=== PATIENT | female | born 1960 | race American Indian/Alaskan Native ===

== ENCOUNTER 2018-08-02 07:32 | Emergency (ER) | payer BC ==
[2018-08-02 07:39] VITALS: BMI 31.1
[2018-08-02 07:42] VITALS: TEMP 98; O2SAT 96
[2018-08-02] MEDS ORDERED: Albuterol-Ipratrop 3 mg / 0.5 (3 ml) UD IH STA (07:46)
--- NOTE | 2018-08-02 07:57 | ED PDOC ---
Arrival/HPI - General Chief Complaint: Shortness Of Breath Time Seen by Provider: 08/02/18 07:33 Historian: Patient - History of Present Illness Narrative History of Present Illness (Text): 08/02/18 07:49 A 58 year old female, whose past medical history includes asthma, lumbar spine fusion (last fall), chronic back pain, presents to the emergency department with a complaint of 1 year duration cough, congestion, and wheezing. Patient reports her symptoms began following a cervical spine fusion 1 year ago. She states that she has been in and out of her PMD's office and the ER. She has been on Symbicort, Albuterol, and home nebulizer treatments. Patient reports her symptoms have been waxing and waning, and presents to day because she "could not take it anymore". She states that she wants to see a correctional treatment specialist. She states that she was placed on steroids last fall by her PMD, but he is no longer prescribing them to her. She is a non-smoker, non- drug user and occasional drinker. Patient denies fevers, chills, headache, dizziness, chest pain, sputum, abdominal pain, nausea, vomiting, diarrhea, neck pain, urinary/bowel changes, or any other complaint. PMD: Dr. Hall Time/Duration: Other (1 year) Symptom Onset: Sudden Symptom Course: Unchanged Activities at Onset: Rest, Light Context: Home Associated Symptoms (Text): 08/02/18 08:03 Appears in no respiratory distress. No accessory muscle use or retractions. The patient is not tachypnea. She appears to be exasperated with her symptoms lasting so long. Patient reports a normal CT scan of her chest and cervical spine approximately one year ago when her symptoms first began. She has registered under several names and her old records are currently unavailable. Past Medical History - Provider Review Nursing Documentation Reviewed: Yes - Reproductive Menopause: Yes Family/Social History - Physician Review Nursing Documentation Reviewed: Yes Family/Social History: No Known Family HX Smoking Status: Never Smoked Hx Alcohol Use: Yes Frequency of alcohol use: Socially Hx Substance Use: No Allergies/Home Meds Allergies/Adverse Reactions: Allergies No Known Allergies Allergy (Verified 08/02/18 07:41) Review of Systems - Physician Review All systems were reviewed & negative as marked: Yes - Review of Systems Constitutional: absent: Fatigue, Fevers Respiratory: SOB, Cough, Wheezing. absent: Sputum Cardiovascular: absent: Chest Pain, Palpitations, Syncope Gastrointestinal: absent: Abdominal Pain, Stool Changes, Diarrhea, Nausea, Vomiting Genitourinary Female: absent: Urine Output Changes Musculoskeletal: absent: Neck Pain Neurological: absent: Headache, Dizziness, Focal Weakness Physical Exam Vital Signs Reviewed: Yes Vital Signs Temp Pulse Resp BP Pulse Ox 08/02/18 07:32 98 F 108 H 20 139/79 96 Temperature: Afebrile Blood Pressure: Normal Pulse: Tachycardic Respiratory Rate: Normal Appearance: Positive for: Well-Appearing, Non-Toxic, Comfortable Pain Distress: None Mental Status: Positive for: Alert and Oriented X 3 - Systems Exam Head: Present: Atraumatic, Normocephalic Pupils: Present: PERRL Extroacular Muscles: Present: EOMI Conjunctiva: Present: Normal Mouth: Present: Moist Mucous Membranes Neck: Present: Normal Range of Motion Respiratory/Chest: Present: Good Air Exchange, Wheezes (Mild bilateral wheezing). No: Respiratory Distress, Accessory Muscle Use, Rales, Retracting, Rhonchi, Tachypneic Cardiovascular: Present: Regular Rate and Rhythm, Normal S1, S2. No: Murmurs Abdomen: No: Tenderness, Distention, Peritoneal Signs Back: Present: Normal Inspection Upper Extremity: Present: Normal Inspection. No: Cyanosis, Edema Lower Extremity: Present: Normal Inspection. No: Edema Neurological: Present: GCS=15, CN II-XII Intact, Speech Normal Skin: Present: Warm, Dry, Normal Color. No: Rashes Psychiatric: Present: Alert, Oriented x 3, Normal Insight, Normal Concentration Medical Decision Making ED Course and Treatment: 08/02/18 07:58 Impression: A 58 year old female presents to the emergency department with a complaint of 1 year duration cough, congestions, and wheezing s/p lumbar spine fusion last fall. Plan: -- Chest X-ray -- Duoneb and predniSONE -- Reassess and disposition Progress Notes: 08/02/18 08:17: Chest X-ray read and interpreted by me show no infiltrates, no effusions, no cardiomegaly. 08/02/18 08:35 Symptoms improved after 1 DuoNeb. She will be discharged home with a prescription for prednisone and Tessalon. She has all of her inhalers. Referral to correctional treatment specialist. - RAD Interpretation Radiology Orders: 08/02/18 07:46 CHEST TWO VIEWS (PA/LAT) [RAD] Stat Chest 2 view shows no infiltrate effusion or cardiomegaly. [employer]: ED Physician - Medication Orders Current Medication Orders: Discontinued Medications Albuterol/Ipratropium (Duoneb 3 Mg/0.5 Mg (3 Ml) Ud) 3 ml IH ONCE STA Stop: 08/02/18 07:47 Prednisone (Prednisone Tab) 60 mg PO STAT ONE Stop: 08/02/18 07:47 - Scribe Statement The provider has reviewed the documentation as recorded by the Scribe Marielena Goodman Provider Scribe Attestation: All medical record entries made by the Scribe were at my direction and personally dictated by me. I have reviewed the chart and agree that the record accurately reflects my personal performance of the history, physical exam, medical decision making, and the department course for this patient. I have also personally directed, reviewed, and agree with the discharge instructions and disposition. Disposition/Present on Arrival - Present on Arrival Any Indicators Present on Arrival: No History of DVT/PE: No History of Uncontrolled Diabetes: No Urinary Catheter: No History of Decub. Ulcer: No History Surgical Site Infection Following: None - Disposition Have Diagnosis and Disposition been Completed?: Yes Diagnosis: Asthma attack Disposition: HOME/ ROUTINE Disposition Time: 08:36 Patient Plan: Discharge Condition: IMPROVED Discharge Instructions (ExitCare): Asthma in Adults Prescriptions: RX: Prednisone [Deltasone] 20 mg PO DAILY #5 tablet Benzonatate [Tessalon Perles] 100 mg PO Q8 #30 sgl Referrals: Donavan Skelton MD [Staff Provider] - Follow up with primary Forms: [employer] ([place]vian)
[2018-08-02 08:56] VITALS: BP 120/70; PULSE 90; RESP 18
--- NOTE | 2018-08-02 09:24 | RAD ---
Date of service: 08/02/2018 HISTORY: cough COMPARISON: No prior. TECHNIQUE: Chest PA and lateral FINDINGS: LUNGS: No active pulmonary disease. Mild peribronchial thickening PLEURA: No significant pleural effusion identified. No pneumothorax apparent. CARDIOVASCULAR: No aortic atherosclerotic calcification present. Normal cardiac size. No pulmonary vascular congestion. OSSEOUS STRUCTURES: No significant abnormalities. VISUALIZED UPPER ABDOMEN: Normal. OTHER FINDINGS: None. IMPRESSION: Mild peribronchial thickening. No evidence of pneumonia
== END 2018-08-02 08:55 | disposition home or self-care (01) ==
LOC: ED 07:32
DX: J45.909 Unspecified asthma, uncomplicated (principal)